=== PATIENT | male | born 1970 ===

== ENCOUNTER 2020-05-17 19:55 | Emergency (ER) | payer SELFPAY ==
[2020-05-17 20:30] LABS: Absolute Lymphocytes (CBC) 2.2 K/uL (0.7-4.9); Basophils % 0.6 % (0-1.3); Hematocrit 43.2 % (39.6-49.0); Lymphocytes % 38.9 % (15.3-44.8); MPV 10.8 fL (7.6-11.3); RBC Red Blood Cell Count 4.47 M/uL (4.33-5.43)
[2020-05-17 20:48] LABS: BUN Blood Urea Nitrogen 14 mg/dL (7-18); Bicarbonate 24 mmol/L (21-32); Glucose Level 100 mg/dL (74-106); NT PRO-BNP 122 pg/mL (<125); Potassium 3.4 mmol/L (3.5-5.1); Sodium Level 141 mmol/L (136-145); Troponin (Emerg Dept Use Only) < 0.02 ng/mL (0.0-0.045)
[2020-05-17] MEDS ORDERED: NA CHLORIDE 0.9% 1,000 ML ONE (20:58)
[2020-05-17 22:20] LABS: SARS-COV-2 RT PCR NEGATIVE (NEGATIVE)
--- NOTE | 2020-05-17 23:06 | EDPHYS ---
Physician Documentation [facility] Name: Randy Arreaga Age: 50 yrs Sex: Male : 1970 Arrival Date: 05/17/2020 Time: 19:56 Bed 7 Private MD: ED Physician Jose Ramon Hale HPI: 05/17 20:01 This 50 yrs old Male presents to ER via EMS with complaints of Near Syncope, rn Chest Pain > 30 y/o. 20:02 The patient or guardian reports chest pain that is located primarily in the substernal rn area. Onset: just prior to arrival. The pain does not radiate. Associated signs and symptoms: Pertinent positives: lightheadedness, near-syncope, shortness of breath, Pertinent negatives: abdominal pain, recent travel, syncope, vomiting. The chest pain is described as a heaviness. Duration: The patient or guardian reports a single episode. Modifying factors: The symptoms are alleviated by nothing. the symptoms are aggravated by nothing. Severity of pain: At its worst the pain was mild in the emergency department the pain has resolved. The patient has not experienced similar symptoms in the past. The patient has not recently seen a physician. Reports outside grilling, sudden onset of lightheadedness, near syncope, and chest pain, no nausea or diaphoresis, went inside, continued to feel like might pass out, got better, called 911, now nearly back to normal. Chest pain brief, only lasted approx 1 min, noted to be hypertensive, has not seen a doctor nor prescribed meds. + long time smoker. . Historical: - Allergies: 20:54 No Known Allergies; ea - PMHx: 20:54 None; ea - PSHx: 20:54 None; right shoulder surgery; ea - Immunization history:: Adult Immunizations up to date. - Family history:: not pertinent. - Social history:: Smoking status: Patient denies any tobacco usage or history of. - Hospitalizations: : No recent hospitalization is reported. ROS: 20:02 Constitutional: Negative for fever, chills, and weight loss, Eyes: Negative for injury, rn pain, redness, and discharge, Neck: Negative for injury, pain, and swelling, Cardiovascular: Negative for palpitations Respiratory: Negative for wheezing, and pleuritic chest pain, Abdomen/GI: Negative for abdominal pain, nausea, vomiting, diarrhea, and constipation, Back: Negative for injury and pain, MS/Extremity: Negative for injury and deformity, Skin: Negative for injury, rash, and discoloration, Neuro: Negative for headache, weakness, numbness, tingling, and seizure. Exam: 20:02 Constitutional: This is a well developed, well nourished patient who is awake, alert, rn seems anxious and concerned Head/Face: Normocephalic, atraumatic. Eyes: Pupils equal round and reactive to light, extra-ocular motions intact. Lids and lashes normal. Conjunctiva and sclera are non-icteric and not injected. Cornea within normal limits. Periorbital areas with no swelling, redness, or edema. ENT: dry MM Cardiovascular: Tachycardic, regular. No pulse deficits. Respiratory: No increased work of breathing, no retractions or nasal flaring. Abdomen/GI: soft, non-tender Skin: Warm, dry with normal turgor. Normal color with no rashes, no lesions, and no evidence of cellulitis. MS/ Extremity: Pulses equal, no cyanosis. Neurovascular intact. Full, normal range of motion. Equal circumference. Mild non-pititng edema bilateral feet and ankles. Neuro: Awake and alert, GCS 15, oriented to person, place, time, and situation. Cranial nerves II-XII grossly intact. Motor strength 5/5 in all extremities. Sensory grossly intact. 20:48 ECG was reviewed by the Attending Physician. rn Vital Signs: 20:00 BP 155 / 96; Pulse 92; Resp 18; Temp 98.9; Pulse Ox 99% ; Weight 145.15 kg; Height 6 ea ft. 3 in. (190.50 cm); 20:00 Body Mass Index 40.00 (145.15 kg, 190.50 cm) ea MDM: 19:57 Patient medically screened. rn 22:28 Differential diagnosis: acute pericarditis, anxiety, coronary artery disease chest wall rn pain, costochondritis, esophagitis, gastritis, gastroesophageal reflux disease (GERD), pericarditis, pleurisy, pneumothorax, pulmonary embolus, stable angina. Data reviewed: vital signs, nurses notes, lab test result(s), EKG, radiologic studies, and as a result, I will admit patient. Refusal of service: The patient/guardian displays adequate decision making capability and despite a detailed discussion of alternatives, benefits, risks, and consequences refuses: Admission to the hospital for further work-up and treatment. ED course: Recommended admission overnight for stress/echo/cardiology consultation, patient does not want to be admitted, plans on going home and wants to f/u with cardiology as outpt. Spoke with patient and he states will allow me to get repeat troponin now to look for changes. No ongoing chest pain, and basically asymptomatic since arrival. . 23:04 Counseling: I had a detailed discussion with the patient and/or guardian regarding: the rn historical points, exam findings, and any diagnostic results supporting the discharge/admit diagnosis, lab results, radiology results, the need for further work-up and treatment in the hospital. Response to treatment: the patient's symptoms have resolved after treatment, the patient's condition has returned to base line, the patient is now symptom free. ED course: Repeat trop neg, patient would still like to go home, refuses admission, will dc with return precautions and urged to f/u with cardiology as soon as possible. . 05/17 19:59 Order name: Basic Metabolic Panel; Complete Time: 21:06 rn 05/17 19:59 Order name: CBC with Diff; Complete Time: 20:45 rn 05/17 19:59 Order name: NT PRO-BNP; Complete Time: 21:06 rn 05/17 19:59 Order name: Troponin (emerg Dept Use Only); Complete Time: 21:06 rn 05/17 19:59 Order name: D-Dimer; Complete Time: 20:45 rn 05/17 19:59 Order name: XRAY Chest (1 view) rn 05/17 19:59 Order name: EKG; Complete Time: 20:01 rn 05/17 19:59 Order name: Cardiac monitoring; Complete Time: 20:52 rn 05/17 22:20 Order name: COVID-19/FLU A+B; Complete Time: 22:23 EDRI 05/17 22:28 Order name: Troponin (emerg Dept Use Only); Complete Time: 23:04 05/17 19:59 Order name: EKG - Nurse/Tech; Complete Time: 20:52 rn 05/17 19:59 Order name: IV Saline Lock; Complete Time: 20:52 rn 05/17 19:59 Order name: Labs collected and sent; Complete Time: 20:52 rn 05/17 19:59 Order name: O2 Per Protocol; Complete Time: :52 rn 05/17 19:59 Order name: O2 Sat Monitoring; Complete Time: 20:52 rn EC:48 Rate is 95 beats/min. Rhythm is regular. QRS [place] is Normal. AL interval is normal. QRS rn interval is normal. QT interval is normal. No Q waves. T waves are Normal. No ST changes noted. Clinical impression: NSR w/ Non-specific ST/T Changes. Interpreted by me. Reviewed by me. Administered Medications: 20:51 Drug: NS 0.9% 1000 ml Route: IV; Rate: 1000 ml; Site: left antecubital; ea 23:26 CANCELLED (Inappropriate at this time): Phenergan 12.5 mg IVP once ea Disposition: 05/17/20 23:05 Discharged to Home. Impression: Near Syncope, Chest pain, unspecified. - Condition is Stable. - Discharge Instructions: Nonspecific Chest Pain, Hypertension, Pain Without a Known Cause, Steps to Quit Smoking. - Medication Reconciliation Form, Thank You Letter, Antibiotic Education, Prescription Opioid Use form. - Follow up: Private Physician; When: As needed; Reason: Recheck today's complaints, Re-evaluation by your physician. - Problem is new. - Symptoms have improved. Signatures: Dispatcher [employer] EDRI Jose Ramon Hale MD MD rn Antunez, Elena, RN RN ea Corrections: (The following items were deleted from the chart) 21:33 20:06 CORONAVIRUS+MR.LAB.BRZ ordered. EDRI EDRI 21:33 20:06 Influenza Screen (A \T\ B)+BA.LAB.BRZ ordered. [facility] EDRI 23:22 23:05 05/17/2020 23:05 Discharged to Home. Impression: Near Syncope; Chest pain, ea unspecified. Condition is Stable. Forms are Medication Reconciliation Form, Thank You Letter, Antibiotic Education, Prescription Opioid Use. Follow up: Private Physician; When: As needed; Reason: Recheck today's complaints, Re-evaluation by your physician. Problem is new. Symptoms have improved. rn
--- NOTE | 2020-05-17 23:06 | ER ---
Nurse's Notes [facility] Name: Randy Arreaga Age: 50 yrs Sex: Male : 1970 Arrival Date: 05/17/2020 Time: 19:56 Bed 7 Private MD: Diagnosis: Near Syncope;Chest pain, unspecified Presentation: 05/17 19:58 Chief complaint: EMS states: pt reports near syncope at home, with chest pain. sg Coronavirus screen: Client denies travel out of the [place] in the last 14 days. fever, Client presents with at least one sign or symptom that may indicate coronavirus-19. Standard/surgical mask placed on the client. Provider contacted for isolation considerations. Ebola Screen: Patient negative for fever greater than or equal to 101.5 degrees Fahrenheit, and additional compatible Ebola Virus Disease symptoms Patient denies exposure to infectious person. Patient denies travel to an Ebola-affected area in the 21 days before illness onset. No symptoms or risks identified at this time. Initial Sepsis Screen:. Initial Sepsis Screen: Does the patient meet any 2 criteria? HR > 90 bpm. Does the patient have a suspected source of infection? No. Patient's initial sepsis screen is negative. Risk Assessment: Do you want to hurt yourself or someone else? Patient reports no desire to harm self or others. Onset of symptoms was May 17, 2020. Care prior to arrival: Medication(s) given: Normal saline infusion, Nitroglycerin, 0.4 mg SL x 1, IV initiated. 20 GA, in the right antecubital area. Transition of care: patient was not received from another setting of care. 19:58 Acuity: RENATE 3 sg 19:58 Method Of Arrival: EMS: [facility] sg 20:00 Note VS per EMS- BP 190/120, HR 115, O2 97 %, Temp 100. sg Triage Assessment: 20:00 General: Appears in no apparent distress. Behavior is appropriate for age. Pain: ea Complains of pain in chest. Neuro: Level of Consciousness is awake, alert, obeys commands, Oriented to person, place, time. Cardiovascular: Patient's skin is warm and dry. Respiratory: Airway is patent Respiratory effort is even, unlabored, Respiratory pattern is regular, symmetrical. Derm: Skin is pink, warm \T\ dry. Historical: - Allergies: 20:54 No Known Allergies; ea - PMHx: 20:54 None; ea - PSHx: 20:54 None; right shoulder surgery; ea - Immunization history:: Adult Immunizations up to date. - Family history:: not pertinent. - Social history:: Smoking status: Patient denies any tobacco usage or history of. - Hospitalizations: : No recent hospitalization is reported. Screenin:52 Abuse screen: Denies threats or abuse. Nutritional screening: No deficits noted. ea Tuberculosis screening: No symptoms or risk factors identified. Fall Risk IV access (20 points). Assessment: 20:00 Reassessment: see triage assessment. ea 21:06 Reassessment: Miko Arreaga [id number]. ea 22:01 Reassessment: Patient and/or family updated on plan of care and expected duration. Pain ea level reassessed. Patient is alert, oriented x 3, equal unlabored respirations, skin warm/dry/pink. Awaiting on covid results. 22:40 Reassessment: Patient and/or family updated on plan of care and expected duration. Pain ea level reassessed. Patient is alert, oriented x 3, equal unlabored respirations, skin warm/dry/pink. Vital Signs: 20:00 BP 155 / 96; Pulse 92; Resp 18; Temp 98.9; Pulse Ox 99% ; Weight 145.15 kg; Height 6 ea ft. 3 in. (190.50 cm); 20:00 Body Mass Index 40.00 (145.15 kg, 190.50 cm) ea ED Course: 19:56 Patient arrived in ED. sg 19:57 Jose Ramon Hale MD is Attending Physician. rn 19:58 Arm band placed on. sg 19:58 Patient has correct armband on for positive identification. Bed in low position. Call ea light in reach. Side rails up X2. clinical research monitor on. NIBP on. 20:00 Triage completed. sg 20:15 Doris Mack, KEVIN is Primary Nurse. ea 20:53 Patient maintains SpO2 saturation greater than 95% on room air. ea 21:13 XRAY Chest (1 view) In Process Unspecified. EDMS Administered Medications: 20:51 Drug: NS 0.9% 1000 ml Route: IV; Rate: 1000 ml; Site: left antecubital; ea 23:26 CANCELLED (Inappropriate at this time): Phenergan 12.5 mg IVP once ea Outcome: 23:05 Discharge ordered by . kevin 23:22 Patient left the ED. fariba Signatures: Dispatcher [employer] Cosmo Bauman RN Jose Ramon Walsh MD MD rn Antunez, Elena, RN RN ea
--- NOTE | 2020-05-18 06:32 | EKG ---
Test Date: 2020-05-17 Test Time: 20:24:56 Gaming Cashier: SHIMA MEASUREMENT RESULTS: Intervals: Rate: 95 MT: 158 QRSD: 92 QT: 362 QTc: 454 [place]: P: 41 MT: 158 QRS: 37 T: 21 INTERPRETIVE STATEMENTS: Normal sinus rhythm Cannot rule out Anterior infarct, age undetermined Abnormal ECG No previous ECG available for comparison Electronically Signed On 05-18-20 06:31:45 LARD MAKER by Cr Morejon
--- NOTE | 2020-05-18 08:01 | RAD REPORT ---
EXAM DESCRIPTION: RAD - Chest Single View - 05/17/2020 9:12 pm CLINICAL HISTORY: CHEST PAIN, near syncope COMPARISON: None TECHNIQUE: AP portable chest image was obtained 05/17/2020 9:12 pm . FINDINGS: Lungs are clear. Heart and vasculature are normal. No measurable pleural effusion and no p neumothorax. No acute bony abnormality seen. Old fracture changes are seen in the posterior right eig hth and ninth ribs. No acute aortic findings suspected. IMPRESSION: No acute cardiopulmonary process.
== END 2020-05-17 23:22 | disposition home or self-care (01) ==
LOC: ER 19:55
DX: R07.9 Chest pain, unspecified (principal); F17.210 Nicotine dependence, cigarettes, uncomplicated; Z20.822 Contact with and (suspected) exposure to COVID-19
CPT/HCPCS: 0240U; 36415; 71045; 80048; 83880; 84484; 85025; 85379; 93005; 99284; J7030